=== PATIENT | female | born 1955 | race Caucasian/White ===

== ENCOUNTER 2016-07-28 06:39 | Day surgery (SDC) | payer BC ==
[~2016-07-28] VITALS: Ht 157.5 cm; Wt 93.0 kg
[~2016-07-28 06:39] MED LIST: HYDROCHLOROTHIA25 MG PO; LEVOXYL100 MCG PO
[2016-07-28 07:00] VITALS: BP 121/65
[2016-07-28 10:22] VITALS: BP 129/66
[2016-07-28 10:53] VITALS: BP 132/74
== END 2016-07-28 10:55 | disposition home or self-care (01) ==
LOC: SDC 06:39
DX: H35.81 Retinal edema (principal); E03.9 Hypothyroidism, unspecified; Z80.3 Family history of malignant neoplasm of breast
CPT/HCPCS: J0690; J0713; J2250; J3010; J3300

== ENCOUNTER 2016-08-25 06:25 | Day surgery (SDC) | payer BC ==
[~2016-08-25] VITALS: Ht 154.9 cm; Wt 92.3 kg
[2016-08-25] MEDS ORDERED: GUMMI BEAR MUL1 EACH PO (07:14)
[2016-08-25] MEDS ORDERED: EYE VITAMIN-MI1 EACH PO (07:15)
[2016-08-25 07:24] VITALS: BP 97/50
[2016-08-25 07:49] LABS: MCH 25.1 PG (29.0-34.0); MCHC 32.2 G/DL (30.0-36.0); MCV 77.8 FL (83-99); PLATELET COUNT 220 K/uL (156-360); RBC DIS.WIDTH-CV 15.8 % (11.8-14.6); RBC DIS.WIDTH-SD 44.3 % (39-53); RED BLOOD COUNT 4.63 M/uL (3.80-5.20); WHITE BLOOD COUNT 7.5 K/uL (4.1-10.2)
[2016-08-25 08:06] LABS: ANION GAP 8 MEQ/L (2-14); CHLORIDE 104 MEQ/L (99-109); POTASSIUM 3.6 MEQ/L (3.7-5.4); SAMPLE HEMOLYSIS CHECK 0; SAMPLE ICTERIC CHECK 0; SAMPLE LIPEMIA CHECK 0; SODIUM 141 MEQ/L (136-147); TOTAL BILIRUBIN 0.4 MG/DL (0.0-1.0)
[2016-08-25 08:12] LABS: ALKALINE PHOSPHATASE 86 IU/L (3-129); GFR ESTIMATE (CALCULATED) > 59 mL/min/; GLUCOSE 95 mg/dL (70-99); UREA NITROGEN (BUN) 18 mg/dL (9-23)
[2016-08-25 11:12] VITALS: BP 120/57
== END 2016-08-25 12:16 | disposition home or self-care (01) ==
LOC: SDC 06:25
PROVIDERS: Ophthalmology
DX: H33.012 Retinal detachment with single break, left eye (principal); G47.33 Obstructive sleep apnea (adult) (pediatric); E03.9 Hypothyroidism, unspecified; E66.9 Obesity, unspecified; Z68.38 Body mass index [BMI] 38.0-38.9, adult
CPT/HCPCS: 80053; 85027; J0690; J0713; J3300